=== PATIENT | male | born 1975 | race Hispanic/Latino ===

== ENCOUNTER 2023-04-06 08:13 | Day surgery (SDC) | payer BC ==
[2023-04-01 09:55] VITALS: BP 131/81; PULSE 70; RESP 19
[2023-04-01 10:13] LABS: BASOPHILS # (AUTO) 0.05 K/uL (0.00-0.20); BASOPHILS % (AUTO) 0.9 % (0.0-5.0); EOSINOPHILS # (AUTO) 0.09 K/uL (0.00-0.70); EOSINOPHILS % (AUTO) 1.6 % (0.0-8.0); IMMATURE GRANULOCYTE ABSOLUTE 0.07 K/uL (0-1); LYMPHOCYTES # (AUTO) 2.2 K/uL (1.0-4.8); LYMPHOCYTES % (AUTO) 37.8 % (21.0-51.0); MEAN CORPUSCULAR HEMOGLOBIN 29.1 pg (27.0-33.0); MEAN CORPUSCULAR HGB CONC 32.8 g/dL (32.0-36.0); MEAN CORPUSCULAR VOLUME 88.8 fL (79-99); MONOCYTES # (AUTO) 0.5 K/uL (0.1-1.0); MONOCYTES % (AUTO) 9.3 % (3.0-13.0); NEUTROPHILS # (AUTO) 2.9 K/uL (1.8-7.7); NEUTROPHILS % (AUTO) 49.2 % (40.0-77.0); PLATELET COUNT (AUTO) 261 K/uL (130-400); RED BLOOD CELL COUNT(AUTO) 5.97 MIL/uL (4.50-6.20); RED CELL DISTRIBUTION WIDTH 12.2 % (11.0-15.5); WHITE BLOOD COUNT (AUTO) 5.8 K/uL (4.8-10.8)
[2023-04-01 10:25] LABS: INR 0.94 (0.85-1.15)
[2023-04-01 10:26] LABS: PARTIAL THROMBOPLASTIN TIME 29.2 SEC (26.3-35.5); POTASSIUM 4.3 mmol/L (3.5-5.1)
[~2023-04-06] VITALS: Ht 180.3 cm; Wt 122.8 kg
[2023-04-06] VITALS (21 sets, daily range): BP systolic 110–153; BP diastolic 73–94; PULSE 86–102; RESP 11–18
[2023-04-06] MEDS ORDERED: CEFAZOLIN SODIUM 1 GM VIAL ONE (08:34)
[2023-04-06] MEDS ORDERED: LACTATED RINGERS 1000ML 1,000 ML IV ONE (08:34)
[2023-04-06] MEDS ORDERED: MIDAZOLAM HCL 1 MG/ML 5ML VIAL ONE (08:54)
[2023-04-06] MEDS ORDERED: FENTANYL CITRATE PF 50 MCG/1 ML 5ML AMP IV ONE ×3 (08:54→11:13)
[2023-04-06] MEDS ORDERED: KETAMINE 50MG/ML SYRINGE 50 MG/ML DISP.SYRIN ONE (08:55)
[2023-04-06] MEDS ORDERED: PROPOFOL 10 MG/ML 20ML VIAL IV ONE (09:50)
[2023-04-06] MEDS ORDERED: MIDAZOLAM HCL 1 MG/ML 2ML VIAL ONE (09:50)
[2023-04-06] MEDS ORDERED: BUPIVACAINE/PF 0.5% 30ML VIAL ONE (09:50)
[2023-04-06] MEDS ORDERED: LIDOCAINE 1%-EPI 1:100,000 20 ML VIAL IJ ONE (09:51)
[2023-04-06] MEDS ORDERED: ROCURONIUM 10MG/1ML SYR 10 MG/ML ML ONE ×2 (10:00→10:24)
[2023-04-06] MEDS ORDERED: CEFAZOLIN SODIUM 2 GM VIAL IVPB ONE (10:05)
[2023-04-06] MEDS ORDERED: BUPIVACAINE/PF 0.5% 30ML VIAL INJ ONE (10:07)
[2023-04-06] MEDS ORDERED: NEOSTIGMINE 5MG/5ML SYR IV ONE (10:20)
[2023-04-06] MEDS ORDERED: GLYCOPYRROLATE 1 MG/5 ML SYRINGE ONE (10:20)
[2023-04-06] MEDS ORDERED: DOCU-116 PO (10:46)
[2023-04-06] MEDS ORDERED: METH-662 PO (10:46)
[2023-04-06] MEDS ORDERED: TRAM50TA4 PO (10:46)
[2023-04-06] MEDS ORDERED: GABA-529 PO (10:46)
[2023-04-06] MEDS ORDERED: SUGAMMADEX SODIUM 200 MG/2 ML VIAL IV ONE (10:53)
[2023-04-06] MEDS ORDERED: MEPERIDINE-PF 25 MG/ML SYG ONE ×3 (10:59→11:22)
[2023-04-06] MEDS ORDERED: ONDANSETRON 4MG INJ ONE (11:39)
[2023-04-06] MEDS ORDERED: TRAMADOL HCL 50 MG TABLET ONE (12:41)
== END 2023-04-06 13:30 | disposition home or self-care (01) ==
LOC: DAH 08:13
PROVIDERS: ATTEND Surgery
DX: K43.0 Incisional hernia with obstruction, without gangrene (principal); E78.5 Hyperlipidemia, unspecified; Z82.49 Family history of ischemic heart disease and other diseases of the circulatory system; Z83.3 Family history of diabetes mellitus; Z79.84 Long term (current) use of oral hypoglycemic drugs; Z79.899 Other long term (current) drug therapy; Z98.890 Other specified postprocedural states
CPT/HCPCS: 80048; 85025; 85610; 85730; 36415; 93005; 49616; A6260; A4663; J7030 ×2; J7120 ×2; J3010 ×3; J0690 ×2; J3490 ×3; J2710; J2250 ×2; J2704; J2405; J0665 ×2; J2175 ×3; A4649; A4930 ×2; A4215; A4223; A4222; A4221